=== PATIENT | male | born 1965 | race Asian ===

== ENCOUNTER 2023-09-16 05:49 | Day surgery (SDC) | payer OTHER ==
[~2023-09-16] VITALS: Ht 171.4 cm; Wt 76.3 kg
[2023-09-16] MEDS ORDERED: BENZOCAINE 20% 50 MCG/SPRAY 57 GM TP ONE (05:50)
[2023-09-16] MEDS ORDERED: LIDOCAINE 4% 50 ML SOLUTION TP ONE (05:50)
[2023-09-16] MEDS ORDERED: LIDOCAINE 2% 11 ML JELLY TP ONE (05:50)
[2023-09-16] MEDS ORDERED: SODIUM CHLORIDE 0.9% 1,000 ML IV ONE (07:00)
[2023-09-16] MEDS ORDERED: SODIUM CHLORIDE 0.9% 0 ML ONE (07:39)
[2023-09-16] MEDS ORDERED: SODIUM CHLORIDE 0.9% 1,000 ML ONE (07:47)
[2023-09-16 08:36] LABS: GLUCOMETER DEV NAME(LOC) SDS.; GLUCOSE,POINT OF CARE 160 MG/DL (70-110)
[2023-09-16] MEDS ORDERED: MIDAZOLAM HCL 2 MG/2 ML VIAL ONE (08:48)
[2023-09-16] MEDS ORDERED: FentaNYL CITRATE PF 100 MCG/2 ML VIAL ONE (08:49)
[2023-09-16 09:15] VITALS: PULSE 82; RESP 18; O2SAT 98
[2023-09-16] MEDS ORDERED: MethylPREDNISolone SOD SUCC 125 MG/2 ML VIAL IVP ONE (09:30)
== END 2023-09-16 11:55 | disposition home or self-care (01) ==
LOC: SURGERY 05:49
PROVIDERS: ATTEND Internal Medicine Critical Care Medicine
DX: J38.4 Edema of larynx (principal); B37.0 Candidal stomatitis; Z79.899 Other long term (current) drug therapy; F17.210 Nicotine dependence, cigarettes, uncomplicated; Z72.89 Other problems related to lifestyle; E11.9 Type 2 diabetes mellitus without complications; Z79.82 Long term (current) use of aspirin
CPT/HCPCS: 31623; 88112; 82962; 87206; 87101; 87220; 87070; 88305; 31624; 71045; 71250; 87015; J3010; J2250; J2930; Q9967; J7030; Z7610